=== PATIENT | female | born 1960 | race Caucasian/White ===

== ENCOUNTER 2017-08-04 11:19 | Day surgery (SDC) | payer BC ==
[2017-08-03 09:12] LABS: HEMATOCRIT 42.9 % (36.0-48.0)
[2017-08-03 09:31] LABS: BUN (BLOOD UREA NITROGEN) 15 MG/DL (6-23); CALCIUM, SERUM 9.5 MG/DL (8.5-10.4); CHLORIDE, SERUM 102 MMOL/L (96-112); CO2 (CARBON DIOXIDE) 28 MMOL/L (24-34); CREATININE 0.76 MG/DL (0.55-1.02); GFR AFRICAN AMERICAN 102 ML/MIN (>=60); GFR NON AFRICAN AMERICAN 88 ML/MIN (>=60); GLUCOSE, SERUM 98 MG/DL (60-99); SODIUM, SERUM 136 MMOL/L (135-148)
[2017-08-03 09:32] LABS: POTASSIUM, SERUM 5.2 MMOL/L (3.5-5.3)
[~2017-08-04] VITALS: Ht 165.1 cm; Wt 69.9 kg
--- NOTE | ~2017-08-04 | OP ---
Record Of Operation [facility] [address] [place]. [address] NAME: REKHA ESCOBEDO : 64 STATUS : REG [facility]#: [id number] AGE: 57 ADM/REG DATE : 08/04/17 MR#: [id number] REPORT SERV DATE: 08/04/17 DICTATED BY: COREY COLLINS DATE: 08/04/17 REPORT STATUS : Draft TRANSCRIBED BY: MODL DATE: 08/04/17 DATE OF PROCEDURE: 08/04/2017 PREOPERATIVE DIAGNOSES: 1. Left kidney stone. 2. Duplicated left ureter. 3. Recurrent urinary tract infections. POSTOPERATIVE DIAGNOSIS: 1. Left kidney stone. 2. Duplicated left ureter. 3. Recurrent urinary tract infections. PROCEDURE PERFORMED: 1. Cystoscopy with bilateral retrograde pyelogram. 2. Left ureteroscopy with laser lithotripsy and basket stone fragment extraction. 3. Left ureter stent placement. ANESTHESIA: General. COMPLICATIONS: None. SPECIMEN: Left kidney stones for chemical analysis. INDICATION: Ms. Escobedo is a 57-year-old with recurring UTIs and history of kidney stones. KUB shows a left lower pole 1 cm stone/cluster of stones. 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 TECHNIQUE: Informed consent was obtained. She was brought to the operating room, general anesthesia was administered. Genitals and perineum were prepped and draped in the lithotomy position. Levaquin was given perioperatively. The introitus was prepped and draped in sterile fashion. Rigid cystoscopy was performed. There was no tumor, lesion, or stone in the bladder. There were patulous ureteral orifices on the right and the left. Right retrograde pyelogram showed a normal right collecting system with no hydronephrosis, hydroureter, or filling defect. Left ureter was cannulated and a retrograde pyelogram was performed. There was a collecting system consistent with an upper pole duplication that was readily filled with contrast. Calcification was seen outside of this collecting system. A 0.038 angled Glidewire was passed at the left UO. Fortuitously, the wire went into the lower pole collecting system. A pullback retrograde pyelogram was performed. This confirmed that it was now in the lower pole collecting system. A 11.5-Persian ureteral access sheath was passed over the wire up to the left lower pole UPJ. Flexible ureteroscopy was performed. In the mid pole and lower pole calices, I encountered several small stones. These were basket extracted. The larger stone was treated with a 200 micron holmium laser fiber and fragments were repositioned in the upper pole for further laser lithotripsy. At this point, all fragments were basket extracted. Retrograde pyelogram was repeated. There was no loss. There was no extravasation. I placed a 6-Persian, 26 cm left lower pole double Record Of Operation [address] [address] NAME: REKHA ESCOBEDO : 64 STATUS : [place] [facility] [place] [id number] AGE: 57 ADM/REG DATE : 08/04/17 MR#: [id number] REPORT SERV DATE: 08/04/17 DICTATED BY: COREY COLLINS DATE: 08/04/17 REPORT STATUS : Draft TRANSCRIBED BY: JORGE DATE: 08/04/17 J stent. The dangling string was removed. Coil was confirmed fluoroscopically in the bladder and fluoroscopically in the kidney. The bladder was drained with a cystoscope. She will follow up in seven days for cystoscopy and stent removal in the office. She will not need a KUB prior to stent removal. REGAN/JORGE Corey Collins M.D. / [id number] CC: Carolina Thompson M.D.
[~2017-08-04 11:19] MED LIST: CYMBALTA60 PO; HYZAAR1 TAB PO; ZESTORETIC1 TAB PO
== END 2017-08-04 18:02 | disposition home or self-care (01) ==
LOC: SDC 11:19
PROVIDERS: Urology
PROC: 0T778DZ Dilation of Left Ureter with Intraluminal Device, Via Natural or Artificial Opening Endoscopic (ICD-10-PCS; 2017-08-04)
PROC: 0TC18ZZ Extirpation of Matter from Left Kidney, Via Natural or Artificial Opening Endoscopic (ICD-10-PCS; 2017-08-04)
PROC: BT14YZZ Fluoroscopy of Kidneys, Ureters and Bladder using Other Contrast (ICD-10-PCS; 2017-08-04)
PROC: 0TF48ZZ Fragmentation in Left Kidney Pelvis, Via Natural or Artificial Opening Endoscopic (ICD-10-PCS; principal; 2017-08-04 14:00)
DX: N20.0 Calculus of kidney (principal); I10 Essential (primary) hypertension; Z87.440 Personal history of urinary (tract) infections; Z79.899 Other long term (current) drug therapy
CPT/HCPCS: 74420; 80048; 82365; 84703; 85014; 85018; 93005; A9270-GY; J1885; J2250; J2405; J2710; J3010; Q9967